=== PATIENT | male | born 1980 | race Caucasian/White ===

== ENCOUNTER 2018-11-06 19:23 | Inpatient (IN) ==
[2018-11-06] MEDS ORDERED: HALDOL ONE (19:34)
[2018-11-06] MEDS ORDERED: ATIVAN ONE ×2 (19:34→19:43)
[2018-11-06] MEDS ORDERED: BENADRYL ONE (19:43)
[2018-11-06] MEDS ORDERED: BENADRYL IM ONE (19:49)
[2018-11-06] MEDS ORDERED: ATIVAN IM ONE ×2 (19:49)
[2018-11-06] MEDS ORDERED: HALDOL IM ONE (19:49)
[2018-11-06] MEDS ORDERED: NS 1,000 ML IV ONE ×4 (19:50→23:09)
[2018-11-06 20:44] LABS: BASO# 0.02 X1000 (0.0-0.2); BASO% 0.2 % (0.0-0.8); HEMATOCRIT 40.3 % (42.0-52.0); LYMPH# 1.47 X1000 (1.2-3.4); LYMPH% 15.4 % (20.5-51.1); MCH 26.9 PG (27-31); MCHC 32.3 g/dL (33-37); MCV 83.4 FL (81-99); MONO# 0.85 X1000 (0.11-0.59); MONO% 8.9 % (1.7-9.3); MPV 10.7 FL (7.4-10.4); NEUT# 7.18 X1000 (1.4-6.5); NEUT% 75.5 % (42.2-75.2); PLT 319 X1000 (130-400); RBC 4.83 XMIL (4.7-6.1); RDW 13.8 % (11.5-14.5); WBC 9.52 X1000 (4.8-10.8)
[2018-11-06 21:03] LABS: ACETAMINOPHEN < 1.2 ug/mL (10-30); AGAP 14; ALB/GLOB RATIO 1.8; ALBUMIN 4.6 g/dL (3.5-5.0); ALKALINE PHOSPHATASE 85 U/L (32-122); BUN 16 mg/dL (8-22); CALCIUM 9.2 mg/dL (8.8-10.2); CHLORIDE 109 mmol/L (98-107); CK TOTAL 693 U/L (24-204); COSMO 298; ESTIMATED GFR > 60; GLUCOSE 114 mg/dL (70-104); GOT 26 U/L (10-34); GPT 24 U/L (10-44); POTASSIUM 3.3 mmol/L (3.5-5.1); SALICYLATES < 3.00 mg/dL (3-10); SODIUM 149 mmol/L (136-145); TCO2 26 mmol/L (25-35); TOTAL PROTEIN 7.1 g/dL (6.3-8.3)
[2018-11-06 21:35] LABS: UR AMPHETAMINES QUAL PRESUMPTIVE POSITIVE (NONE DETECT); UR BARBITUATES QUAL NONE DETECTED (NONE DETECT)
[2018-11-06 21:36] LABS: UR BENZODIAZEPIN QUAL NONE DETECTED (NONE DETECT); UR CANNABINOIDS QUAL NONE DETECTED (NONE DETECT); UR COCAINE QUAL NONE DETECTED (NONE DETECT); UR METHADONE QUAL NONE DETECTED (NONE DETECT); UR OPIATES QUAL NONE DETECTED (NONE DETECT); UR OXYCODONE QUAL NONE DETECTED (NONE DETECT); UR PCP QUAL NONE DETECTED (NONE DETECT)
[2018-11-07] MEDS ORDERED: NS 1,000 ML IV ONE (02:29)
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
--- NOTE | 2018-11-07 03:57 | HISTORY AND PHYSICAL ---
PRIMARY CARE PHYSICIAN: Unknown. CHIEF COMPLAINT: Agitation. HISTORY OF PRESENTING ILLNESS: A 38-year-old male with a history of bipolar disorder, brought to the emergency department due to patient being agitated and combative. He was seen in the ED, he was sedated due to his severe anxiety and agitation. At time of my examination, he was moderately sedated and not much information could be obtained. Most of the history is obtained from previous records. PAST MEDICAL HISTORY: Include bipolar disorder. PAST SURGICAL HISTORY: None. ALLERGIES: No known drug allergies. CURRENT MEDICATIONS: Include Zyprexa 10 mg p.o. at bedtime, valproic acid 375 mg p.o. b.i.d., and 750 mg p.o. at bedtime. SOCIAL HISTORY: A pack a day history of smoking. History of alcohol use. History of meth use. FAMILY HISTORY: Unknown. REVIEW OF SYSTEMS: Unable to obtain due to patient being sedated. PHYSICAL EXAMINATION: GENERAL: The patient is sedated and resting comfortably. VITAL SIGNS: Temperature 97.1 degrees, pulse 81, respiration 18, blood pressure 130/81. HEENT: Atraumatic, normocephalic. NECK: No masses. CHEST: Clear to auscultation. CARDIOVASCULAR: Regular rate and rhythm. ABDOMEN: Soft. Positive bowel sounds. EXTREMITIES: No edema. NEURO: He is arousable. GENITOURINARY: No bladder distention. SKIN: Warm. LABORATORIES AND STUDIES: Sodium 149, potassium 3.3, chloride 109, CO2 of 26, BUN is 16, creatinine is 1.0. Glucose is 114. CPK is 740. WBCs 9.52, hemoglobin 13.1, hematocrit 40.3, platelets 319,000. ASSESSMENT: A 38-year-old male with a history of bipolar disorder brought to the emergency department due to patient being agitated and combative. He was evaluated in the emergency department, he was sedated, and he will require admission for further management. 1. Agitation/drug use. 2 Bipolar disorder 3. Mild rhabdomyolysis. PLAN: 1. We will admit patient to medical floor. 2. Continue with benzodiazepines for agitation. Restart his antipsychotic medications. 3. Continue with IV fluids. 4. Will monitor electrolytes. 5. Put patient on DVT prophylaxis with SCDs. 6. We will continue to follow and reassess, make further recommendation based on patient's clinical course. cc: Ja Tabor MD MTDD
[2018-11-07] MEDS ORDERED: 1/2 NS 1,000 ML IV SCH (04:34)
[2018-11-07 08:13] VITALS: BP 132/91
--- NOTE | 2018-11-07 15:10 | DISCHARGE SUMMARY ---
ADMISSION DATE: 11/07/2018 DISCHARGE DATE: 11/07/2018 HISTORY AND HOSPITAL COURSE: Mr. Espino is a 38-year-old gentleman who was admitted for agitation. Urine drug screen was positive for amphetamine, was admitted for neurological observation. However, he was very adamant, wanting to leave. He eventually became more agitated on the floor and left AMA. At the time of his leaving, his blood pressure was 132/91, pulse of 83, respiration is 16, temperature 97.5 degrees. I have reviewed his lab work from the days before. DIAGNOSIS AT TIME OF DISCHARGE: 1. Agitation secondary to drug abuse. 2. Amphetamine use. 3. Mild rhabdomyolysis. 4. History of generalized anxiety disorder. 5. Stimulant abuse and dependence. Mr. Smiht left AMA before I could get to see him. cc: Dread Marquez MD
--- NOTE | 2018-11-08 07:19 | EKG Report ---
Test Performed on : 11/06/2018 8:50:15 PM Test Reason : DRUG REACTION Blood Pressure : / mmHG Vent. Rate : 095 BPM Atrial Rate : 095 BPM P-R Int : 116 ms QRS Dur : 096 ms QT Int : 364 ms P-R-T Axes : 067 090 041 degrees QTc Int : 457 ms Normal sinus rhythm. Rightward axis Borderline ECG When compared with ECG of 17-MAY-2018 14:54, Nonspecific T wave abnormality has replaced inverted T waves in Inferior leads Unconfirmed Result
== END 2018-11-07 08:59 | disposition left against medical advice (07) | DRG 894 ==
LOC: ED 19:23 → 3N 11-07 03:52 → SUATTDRO 11-07 03:52
PROVIDERS: ATTEND Internal Medicine
CPT/HCPCS: 80053; 80101; 80196; 80301; 80307; 80320; 80324; 80329; 80345; 80346; 80353; 80358; 80361; 80365; 82003; 82055; 82550; 83992; 85025; 93005; G0431; G0434; G0479; G0480; G6038; G6039; G6040; J1200; J1630; J2060; J7030